=== PATIENT | male | born 1970 | race Caucasian/White ===

== ENCOUNTER 2018-04-23 22:13 | Inpatient (IN) | payer OTHER ==
[2018-04-23] MEDS ORDERED: ONDANSETRON 4 MG INJ IV (23:30)
[2018-04-23] MEDS: SOD CHLORIDE 0.9% 1,000 ML IV (23:40)
[2018-04-23] MEDS: LORAZEPAM 2 MG INJ IV (23:50)
[2018-04-23] MEDS: ACETAMINOPHEN 325 MG TAB PO (23:50)
[2018-04-24 02:53] LABS: ADD UMIC NO; UR ASCORBIC ACID NEGATIVE (NEGATIVE); UR BILIRUBIN (Dip) NEGATIVE (NEGATIVE); UR BLOOD (Dip) NEGATIVE (NEGATIVE); UR CLARITY CLEAR (CLEAR); UR COLOR YELLOW (YELLOW); UR GLUCOSE (Dip) NEGATIVE (NEGATIVE); UR KETONES (Dip) NEGATIVE (NEGATIVE); UR LEUKOCYTE ESTERASE (Dip) NEGATIVE Leu/ul (NEGATIVE); UR NITRITE (Dip) NEGATIVE (NEGATIVE); UR TOTAL PROTEIN (Dip) NEGATIVE (NEGATIVE); UR UROBILINOGEN (Dip) 1+ mg/dL (NEGATIVE)
[2018-04-24] MEDS: CHLORDIAZEPOXIDE 25 MG CAP PO ×4 (05:13→21:49)
[2018-04-24 05:38] LABS: ADD MAN DIFF? NO
[2018-04-24 05:44] LABS: BASOPHIL # 0.1 10^3/ul (0.0-0.1); BASOPHILS % 1.5 % (0.0-2.0); EOSINOPHILS % 0.5 % (0.0-7.0); HEMATOCRIT 33.1 % (42.0-52.0); HEMOGLOBIN 11.1 g/dl (14.0-18.0); LYMPHOCYTES % 11.5 % (15.0-51.0); MEAN CORPUSCULAR HEMOGLOBIN 35.4 pg (29.0-33.0); MEAN CORPUSCULAR HGB CONC 33.5 g/dl (32.0-37.0); MEAN CORPUSCULAR VOLUME 105.4 fl (82.0-101.0); MEAN PLATELET VOLUME 8.7 fl (7.4-10.4); MONOCYTE # 1.1 10^3/ul (0.3-0.9); MONOCYTES % 12.5 % (0.0-11.0); NEUTROPHIL # 6.3 10^3/ul (1.6-7.5); NEUTROPHILS % 73.3 % (39.0-77.0); PLATELET COUNT 736 10^3/UL (140-415); RED BLOOD COUNT 3.14 10^6/ul (4.70-6.10); RED CELL DISTRIBUTION WIDTH 12.9 % (11.5-14.5)
[2018-04-24 05:44] LABS: WHITE BLOOD COUNT 8.6 10^3/ul (4.8-10.8)
[2018-04-24] MEDS: CLINDAMYCIN 900 MG/D5W (PMX) 50 ML IVPB (06:04)
[2018-04-24] MEDS: LEVOFLOXACIN 500MG/D5W (PMX) 100 ML IVPB (06:07)
[2018-04-24 06:12] LABS: ALANINE AMINOTRANSFERASE 88 IU/L (13-69); ALBUMIN 2.5 g/dl (3.3-4.9); ALBUMIN/GLOBULIN RATIO 0.73; ALKALINE PHOSPHATASE 182 IU/L (42-121); ANION GAP 8 (5-13); ASPARTATE AMINO TRANSFERASE 187 IU/L (15-46); BILIRUBIN,INDIRECT 0.5 mg/dl (0-1.1); BILIRUBIN,TOTAL 0.5 mg/dl (0.2-1.3); BLOOD UREA NITROGEN 5 mg/dl (7-20); CARBON DIOXIDE 23 mmol/L (21-31); CHLORIDE 107 mmol/L (97-110); CREATININE 0.37 mg/dl (0.61-1.24); Estimated GFR > 60 mL/min (>60); GLUCOSE 91 mg/dl (70-220); MAGNESIUM 1.2 mg/dl (1.7-2.5); SODIUM 138 mmol/L (135-144); TOTAL PROTEIN 5.9 g/dl (6.1-8.1)
[2018-04-24 06:16] LABS: LACTIC ACID 2.9 mmol/L (0.5-2.0)
[2018-04-24] MEDS ORDERED: PENDING SANTYL ORDER FOR WOUND CARE XX (07:30)
[2018-04-24] MEDS: SOD CHLORIDE 0.9% 1,000 ML IV ×3 (07:30→21:51)
[2018-04-24] MEDS: MULTIVITAMINS 10 ML, THIAMINE 100 MG, FOLIC ACID 1 MG in SOD CHLORIDE 0.9% 1,000 ML IVPB (09:18)
[2018-04-24] MEDS: FAMOTIDINE 20 MG INJ IV (11:34)
[2018-04-24] MEDS: LORAZEPAM 1 MG TAB PO ×2 (14:00→21:49)
[2018-04-24] MEDS: ACETAMINOPHEN 325 MG TAB PO (21:50)
[2018-04-25 05:42] LABS: ADD MAN DIFF? NO
[2018-04-25 05:48] LABS: BASOPHIL # 0.1 10^3/ul (0.0-0.1); BASOPHILS % 1.6 % (0.0-2.0); EOSINOPHILS # 0.1 10^3/ul (0.0-0.5); EOSINOPHILS % 1.5 % (0.0-7.0); HEMOGLOBIN 11.1 g/dl (14.0-18.0); LYMPHOCYTES # 1.5 10^3/ul (0.8-2.9); LYMPHOCYTES % 21.8 % (15.0-51.0); MEAN CORPUSCULAR HGB CONC 34.7 g/dl (32.0-37.0); MEAN CORPUSCULAR VOLUME 103.9 fl (82.0-101.0); MEAN PLATELET VOLUME 8.3 fl (7.4-10.4); MONOCYTE # 0.9 10^3/ul (0.3-0.9); MONOCYTES % 13.2 % (0.0-11.0); NEUTROPHIL # 4.1 10^3/ul (1.6-7.5); NEUTROPHILS % 61.2 % (39.0-77.0); PLATELET COUNT 656 10^3/UL (140-415); RED BLOOD COUNT 3.08 10^6/ul (4.70-6.10); RED CELL DISTRIBUTION WIDTH 12.4 % (11.5-14.5)
[2018-04-25 05:48] LABS: WHITE BLOOD COUNT 6.7 10^3/ul (4.8-10.8)
[2018-04-25 06:04] LABS: INR 1.12; PROTIME 14.6 Sec (11.9-14.9); PT RATIO 1.1
[2018-04-25] MEDS: LEVOFLOXACIN 500MG/D5W (PMX) 100 ML IVPB (06:08)
[2018-04-25] MEDS: LORAZEPAM 1 MG TAB PO ×3 (06:08→20:57)
[2018-04-25 06:09] LABS: LIPASE 326 U/L (23-300)
[2018-04-25] MEDS: SOD CHLORIDE 0.9% 1,000 ML IV ×2 (06:09→18:25)
[2018-04-25 06:22] LABS: ALANINE AMINOTRANSFERASE 61 IU/L (13-69); ALBUMIN 2.1 g/dl (3.3-4.9); ALBUMIN/GLOBULIN RATIO 0.58; ALKALINE PHOSPHATASE 168 IU/L (42-121); ANION GAP 8 (5-13); ASPARTATE AMINO TRANSFERASE 108 IU/L (15-46); BILIRUBIN,INDIRECT 0.5 mg/dl (0-1.1); BILIRUBIN,TOTAL 0.5 mg/dl (0.2-1.3); BLOOD UREA NITROGEN 5 mg/dl (7-20); CARBON DIOXIDE 22 mmol/L (21-31); CHLORIDE 106 mmol/L (97-110); CREATININE 0.38 mg/dl (0.61-1.24); Estimated GFR > 60 mL/min (>60); GLUCOSE 105 mg/dl (70-220); MAGNESIUM 1.3 mg/dl (1.7-2.5); PHOSPHORUS 4.2 mg/dl (2.5-4.9); POTASSIUM 3.4 mmol/L (3.5-5.1); SODIUM 136 mmol/L (135-144); TOTAL PROTEIN 5.7 g/dl (6.1-8.1)
[2018-04-25 06:23] LABS: TROPONIN-I < 0.012 ng/ml (0.000-0.120)
[2018-04-25 06:42] LABS: THYROID STIMULATING HORMONE 0.818 MIU/L (0.465-4.680)
[2018-04-25] MEDS: CHLORDIAZEPOXIDE 25 MG CAP PO ×3 (08:02→22:35)
[2018-04-25] MEDS: MULTIVITAMINS 10 ML, THIAMINE 100 MG, FOLIC ACID 1 MG in SOD CHLORIDE 0.9% 1,000 ML IVPB (08:03)
[2018-04-25] MEDS: ACETAMINOPHEN 325 MG TAB PO ×3 (08:03→22:35)
[2018-04-25] MEDS: FAMOTIDINE 20 MG INJ IV (08:03)
[2018-04-25 08:21] LABS: HEMOGLOBIN A1C 4.6 % (0-5.9)
[2018-04-25] MEDS: MAGNESIUM SULFATE 3 GM in DEXTROSE 5% 100 ML IVPB (12:29)
[2018-04-25] MEDS: POTASSIUM CHLORIDE 20 MEQ POWDER FOR ORAL SOLN PO (12:29)
[2018-04-26] MEDS: SOD CHLORIDE 0.9% 1,000 ML IV ×2 (03:10→07:45)
[2018-04-26] MEDS: LEVOFLOXACIN 500MG/D5W (PMX) 100 ML IVPB (05:34)
[2018-04-26] MEDS: LORAZEPAM 1 MG TAB PO ×3 (05:35→21:16)
[2018-04-26 06:18] LABS: WHITE BLOOD COUNT 5.6 10^3/ul (4.8-10.8)
[2018-04-26 06:18] LABS: ADD MAN DIFF? NO; BASOPHIL # 0.1 10^3/ul (0.0-0.1); BASOPHILS % 1.6 % (0.0-2.0); EOSINOPHILS # 0.2 10^3/ul (0.0-0.5); EOSINOPHILS % 3.9 % (0.0-7.0); HEMATOCRIT 32.3 % (42.0-52.0); HEMOGLOBIN 10.9 g/dl (14.0-18.0); LYMPHOCYTES # 1.4 10^3/ul (0.8-2.9); MEAN CORPUSCULAR HEMOGLOBIN 35.3 pg (29.0-33.0); MEAN CORPUSCULAR HGB CONC 33.7 g/dl (32.0-37.0); MEAN CORPUSCULAR VOLUME 104.5 fl (82.0-101.0); MEAN PLATELET VOLUME 8.6 fl (7.4-10.4); MONOCYTE # 0.7 10^3/ul (0.3-0.9); MONOCYTES % 11.8 % (0.0-11.0); NEUTROPHIL # 3.2 10^3/ul (1.6-7.5); NEUTROPHILS % 56.8 % (39.0-77.0); PLATELET COUNT 633 10^3/UL (140-415); RED BLOOD COUNT 3.09 10^6/ul (4.70-6.10); RED CELL DISTRIBUTION WIDTH 12.4 % (11.5-14.5)
[2018-04-26 07:00] LABS: ANION GAP 7 (5-13); BLOOD UREA NITROGEN 4 mg/dl (7-20); CALCIUM 8.1 mg/dl (8.4-10.2); CARBON DIOXIDE 23 mmol/L (21-31); CHLORIDE 108 mmol/L (97-110); CREATININE 0.39 mg/dl (0.61-1.24); Estimated GFR > 60 mL/min (>60); GLUCOSE 99 mg/dl (70-220); MAGNESIUM 1.8 mg/dl (1.7-2.5); PHOSPHORUS 4.1 mg/dl (2.5-4.9); SODIUM 138 mmol/L (135-144)
[2018-04-26] MEDS: CHLORDIAZEPOXIDE 25 MG CAP PO ×3 (10:01→21:16)
[2018-04-26] MEDS: MULTIVITAMINS 10 ML, THIAMINE 100 MG, FOLIC ACID 1 MG in SOD CHLORIDE 0.9% 1,000 ML IVPB (10:02)
[2018-04-26] MEDS: POTASSIUM CHLORIDE 20 MEQ POWDER FOR ORAL SOLN PO (10:02)
[2018-04-26] MEDS: FAMOTIDINE 20 MG INJ IV (10:02)
[2018-04-26] MEDS: ENOXAPARIN 40 MG/0.4 ML SYG SC (10:16)
[2018-04-26] MEDS: ACETAMINOPHEN 325 MG TAB PO (10:18)
[2018-04-26] MEDS: LORAZEPAM 2 MG INJ IM (22:17)
[2018-04-26] MEDS: DIPHENHYDRAMINE 25 MG CAP PO (22:17)
[2018-04-26] MEDS: HALOPERIDOL 5 MG INJ IM (23:45)
[2018-04-27] MEDS: SOD CHLORIDE 0.9% 1,000 ML IV ×2 (00:58→05:30)
[2018-04-27] MEDS: LEVOFLOXACIN 500MG/D5W (PMX) 100 ML IVPB (05:30)
[2018-04-27] MEDS: LORAZEPAM 1 MG TAB PO ×2 (06:48→13:15)
[2018-04-27] MEDS: POTASSIUM CHLORIDE 20 MEQ POWDER FOR ORAL SOLN PO (08:24)
[2018-04-27] MEDS: MULTIVITAMINS 10 ML, THIAMINE 100 MG, FOLIC ACID 1 MG in SOD CHLORIDE 0.9% 1,000 ML IVPB (08:24)
[2018-04-27] MEDS: FAMOTIDINE 20 MG INJ IV (08:24)
[2018-04-27] MEDS: CHLORDIAZEPOXIDE 25 MG CAP PO ×2 (08:24→13:15)
[2018-04-27] MEDS: ENOXAPARIN 40 MG/0.4 ML SYG SC (08:31)
[2018-04-27] MEDS: ACETAMINOPHEN 325 MG TAB PO (08:45)
== END 2018-04-27 17:05 | disposition home or self-care (01) | DRG 896 ==
LOC: 2NE 04-25 15:35 → 6WM 22:13
DX: F10.239 Alcohol dependence with withdrawal, unspecified (principal); J69.0 Pneumonitis due to inhalation of food and vomit; R65.10 Systemic inflammatory response syndrome (SIRS) of non-infectious origin without acute organ dysfunction; F10.229 Alcohol dependence with intoxication, unspecified; K70.9 Alcoholic liver disease, unspecified; F32.9 Major depressive disorder, single episode, unspecified; D64.9 Anemia, unspecified
CPT/HCPCS: 71045; 72100; 76705; 80048; 80053; 81003; 83036; 83605; 83690; 83735; 84100; 84443; 84484; 85025; 85610; 87040; 87081; 87086; 90686

== ENCOUNTER 2018-09-03 01:34 | Inpatient (IN) | payer OTHER ==
[2018-09-03] MEDS ORDERED: DOCUSATE SODIUM 100 MG CAP PO (02:30)
[2018-09-03] MEDS ORDERED: CHLORDIAZEPOXIDE 25 MG CAP PO ×3 (02:30→09:00)
[2018-09-03] MEDS ORDERED: BISACODYL (EC) 5 MG TAB PO (02:30)
[2018-09-03] MEDS ORDERED: NACL 0.9% 3 ML SYG IV (02:30)
[2018-09-03] MEDS: MULTIVITAMINS 10 ML, THIAMINE 100 MG, FOLIC ACID 1 MG in SOD CHLORIDE 0.9% 1,000 ML IVPB ×2 (03:58→08:16)
[2018-09-03 04:13] LABS: ADD MAN DIFF? NO
[2018-09-03 04:24] LABS: BASOPHILS % 0.7 % (0.0-2.0); EOSINOPHILS % 0.5 % (0.0-7.0); HEMATOCRIT 38.5 % (42.0-52.0); HEMOGLOBIN 12.8 g/dl (14.0-18.0); LYMPHOCYTES # 0.7 10^3/ul (0.8-2.9); LYMPHOCYTES % 16.4 % (15.0-51.0); MEAN CORPUSCULAR HEMOGLOBIN 30.9 pg (29.0-33.0); MEAN CORPUSCULAR HGB CONC 33.2 g/dl (32.0-37.0); MONOCYTE # 0.6 10^3/ul (0.3-0.9); MONOCYTES % 12.7 % (0.0-11.0); NEUTROPHILS % 69.5 % (39.0-77.0); POSITIVE DIFF @See below; RED BLOOD COUNT 4.14 10^6/ul (4.70-6.10); RED CELL DISTRIBUTION WIDTH 16.7 % (11.5-14.5)
[2018-09-03 04:24] LABS: WHITE BLOOD COUNT 4.3 10^3/ul (4.8-10.8)
[2018-09-03] MEDS: ACETAMINOPHEN 325 MG TAB PO ×2 (04:26→12:05)
[2018-09-03 04:34] LABS: HEMOGLOBIN A1C 5.7 % (0-5.9)
[2018-09-03] MEDS: CHLORDIAZEPOXIDE 25 MG CAP PO ×3 (04:43→12:05)
[2018-09-03 04:50] LABS: MEAN PLATELET VOLUME 10.4 fl (7.4-10.4); PLATELET COUNT 145 10^3/UL (140-415)
[2018-09-03 04:59] LABS: MAGNESIUM 1.9 mg/dl (1.7-2.5)
[2018-09-03 05:02] LABS: ALANINE AMINOTRANSFERASE 16 IU/L (13-69); ALBUMIN 3.5 g/dl (3.3-4.9); ALBUMIN/GLOBULIN RATIO 0.81; ALKALINE PHOSPHATASE 196 IU/L (42-121); ANION GAP 8 (5-13); ASPARTATE AMINO TRANSFERASE 85 IU/L (15-46); BILIRUBIN,INDIRECT 0.9 mg/dl (0-1.1); BILIRUBIN,TOTAL 0.9 mg/dl (0.2-1.3); BLOOD UREA NITROGEN 4 mg/dl (7-20); CALCIUM 8.2 mg/dl (8.4-10.2); CARBON DIOXIDE 24 mmol/L (21-31); CHLORIDE 104 mmol/L (97-110); CREATININE 0.45 mg/dl (0.61-1.24); Estimated GFR > 60 mL/min (>60); GLUCOSE 105 mg/dl (70-220); POTASSIUM 3.8 mmol/L (3.5-5.1); SODIUM 136 mmol/L (135-144); TOTAL PROTEIN 7.8 g/dl (6.1-8.1)
[2018-09-03 05:03] LABS: ETHANOL < 10.0 mg/dl (0-0)
[2018-09-03 07:17] LABS: THYROID STIMULATING HORMONE 0.986 MIU/L (0.465-4.680)
[2018-09-03] MEDS: ONDANSETRON 4 MG INJ IV (08:02)
[2018-09-03 08:08] LABS: FOLATE 12.9 ng/ml (2.8-20.0)
[2018-09-03] MEDS: FAMOTIDINE 20 MG TAB PO (08:16)
[2018-09-03] MEDS: CLINDAMYCIN 600 MG/D5W (PMX) 50 ML IVPB (08:46)
[2018-09-03] MEDS ORDERED: THIAMINE 200 MG in SOD CHLORIDE 0.9% 100 ML IV (09:00)
[2018-09-03] MEDS ORDERED: THIAMINE 200 MG INJ IV (09:00)
[2018-09-03] MEDS: LORAZEPAM 2 MG INJ IV ×2 (09:36→11:35)
[2018-09-03 12:38] LABS: CHOL/HDL RATIO 2.4 RATIO; HDL CHOLESTEROL 99 mg/dl (27-67); LDL CHOLESTEROL,CALCULATED 125 mg/dl; TRIGLYCERIDES 115 mg/dl (0-149)
[2018-09-03 12:38] LABS: CHOLESTEROL 247 mg/dl (100-200)
[2018-09-04] MEDS ORDERED: CHLORDIAZEPOXIDE 25 MG CAP PO ×2 (02:30→09:00)
[2018-09-04] MEDS ORDERED: THIAMINE 200 MG in SOD CHLORIDE 0.9% 100 ML IV (09:00)
[2018-09-05] MEDS ORDERED: CHLORDIAZEPOXIDE 25 MG CAP PO ×2 (02:30→09:00)
[2018-09-06] MEDS ORDERED: CHLORDIAZEPOXIDE 25 MG CAP PO (02:30)
== END 2018-09-03 13:35 | disposition left against medical advice (07) | DRG 894 ==
LOC: 2NE 01:34
PROVIDERS: Internal Medicine
DX: F10.239 Alcohol dependence with withdrawal, unspecified (principal); F10.229 Alcohol dependence with intoxication, unspecified; Y90.0 Blood alcohol level of less than 20 mg/100 ml
CPT/HCPCS: 80053; 80061; 80307; 82607; 82746; 83036; 83735; 84443; 85025; 87081